=== PATIENT | female | born 1935 | race Caucasian/White ===

== ENCOUNTER → 2016-07-13 | Outpatient (CLI) | payer MEDICARE, OTHER ==
[~2016-07-13] VITALS: Ht 167.6 cm; Wt 70.3 kg
[~2016-07-13] MED LIST: DENOSUMAB 60 MG/1 ML SQ SCH
[2016-07-13 11:02] VITALS: BP 141/64
== END ==
LOC: EUOP 10:27
PROVIDERS: ATTEND Internal Medicine Nephrology
DX: M81.0 Age-related osteoporosis without current pathological fracture (principal)
CPT/HCPCS: 96372; J0897

== ENCOUNTER → 2016-08-08 | Outpatient (CLI) | payer MEDICARE, OTHER | LOC: EMS 16:15 | PROVIDERS: ATTEND Emergency Medicine | DX: I63.9 Cerebral infarction, unspecified (principal) ==

== ENCOUNTER → 2016-09-07 | Outpatient (CLI) | payer MEDICARE, OTHER | LOC: RAD 13:04 | PROVIDERS: ATTEND Internal Medicine | DX: I61.2 Nontraumatic intracerebral hemorrhage in hemisphere, unspecified (principal) | CPT/HCPCS: 70450 ==

== ENCOUNTER → 2016-10-11 | Outpatient (CLI) | payer MEDICARE, OTHER ==
[~2016-10-11] MED LIST changes: +ALEN70TA47 PO; +ASPI-860 PO; +ATOR40TA2 PO; +CALC1CAP21 PO; +CHLO50TA2 PO; +CHOL100092 PO; -DENOSUMAB 60 MG/1 ML SQ SCH; +LUTE20TA PO; +MEMA10TA21 PO; +METO100T2 PO; +MULT-878 PO; +NF-LISIN40 PO; +NIFE60TA64 PO; +PSYL283P30 PO
[2016-10-11 08:46] LABS: BASOPHILS % (AUTO) 1 % (0-2); EOSINOPHILS # (AUTO) 0.3 10^3uL; EOSINOPHILS % (AUTO) 4 % (0-4); LYMPHOCYTES # (AUTO) 1.3 X10^3; MEAN CORPUSCULAR HEMOGLOBIN 30.2 PG (26.0-34.0); MEAN CORPUSCULAR HGB CONC 33.3 g/dL (31.0-37.0); MEAN CORPUSCULAR VOLUME 91 FL (80-100); MEAN PLATELET VOLUME 9.8 FL (6.0-9.5); MONOCYTES # (AUTO) 0.8 X10^3; MONOCYTES % (AUTO) 12 % (3-11); NEUTROPHILS # (AUTO) 4.2 X10^3; NEUTROPHILS % (AUTO) 64 % (51-67); PLATELET COUNT 286 10^3uL (150-450); WHITE BLOOD COUNT 6.55 10^3uL (4.0-11.0)
[2016-10-11 09:40] LABS: ANION GAP 17.5 MEQ/L (3-15)
== END ==
LOC: LAB 08:35
PROVIDERS: ATTEND Internal Medicine
DX: I10 Essential (primary) hypertension (principal); I61.0 Nontraumatic intracerebral hemorrhage in hemisphere, subcortical
CPT/HCPCS: 36415; 80048; 85025

== ENCOUNTER → 2016-11-08 | Outpatient (CLI) | payer MEDICARE, OTHER ==
[2016-11-08 08:29] LABS: BASOPHILS % (AUTO) 0 % (0-2); EOSINOPHILS # (AUTO) 0.2 10^3uL; EOSINOPHILS % (AUTO) 3 % (0-4); LYMPHOCYTES # (AUTO) 1.3 X10^3; MEAN CORPUSCULAR HEMOGLOBIN 30.4 PG (26.0-34.0); MEAN CORPUSCULAR HGB CONC 33.6 g/dL (31.0-37.0); MEAN CORPUSCULAR VOLUME 90 FL (80-100); MEAN PLATELET VOLUME 10.1 FL (6.0-9.5); MONOCYTES # (AUTO) 0.8 X10^3; MONOCYTES % (AUTO) 12 % (3-11); NEUTROPHILS # (AUTO) 4.2 X10^3; NEUTROPHILS % (AUTO) 64 % (51-67); PLATELET COUNT 281 10^3uL (150-450); WHITE BLOOD COUNT 6.59 10^3uL (4.0-11.0)
[2016-11-08 08:49] LABS: ANION GAP 14.3 MEQ/L (3-15)
== END ==
LOC: LAB 08:03
PROVIDERS: ATTEND Internal Medicine
DX: I10 Essential (primary) hypertension (principal); I61.0 Nontraumatic intracerebral hemorrhage in hemisphere, subcortical
CPT/HCPCS: 36415; 80048; 85025